=== PATIENT | male | born 1935 | race Caucasian/White ===

== ENCOUNTER → 2017-02-15 | Outpatient (CLI) | payer OTHER ==
[~2017-02-15] MED LIST: Carafate1 GM/10 ML PO; MIDODRINE HCL5 M1 PO; NKHM; PRILOSEC20 MG PO; VITAMIN D50000 I3 PO
== END | disposition home or self-care (01) ==
LOC: RAD 10:43
DX: M81.0 Age-related osteoporosis without current pathological fracture (principal); E83.51 Hypocalcemia

== ENCOUNTER → 2018-12-11 | Outpatient (CLI) | payer OTHER | END | disposition home or self-care (01) | LOC: RAD 10:25 | DX: M81.0 Age-related osteoporosis without current pathological fracture (principal); E03.9 Hypothyroidism, unspecified; Z87.891 Personal history of nicotine dependence ==

== ENCOUNTER 2020-08-20 10:41 | Inpatient (IN) | payer OTHER ==
[~2020-08-20] VITALS: Ht 182.9 cm; Wt 90.3 kg
[2020-08-20 11:25] LABS: BASO % 0.3 % (0.0-1.0); EOS % 0.4 % (1.0-4.0); HEMATOCRIT 38.5 % (42.0-52.0); LYMPH # 0.9 10*3/uL (1.3-4.4); LYMPH % 11.3 % (27.0-41.0); MEAN CELL VOLUME 91.2 fl (80.0-94.0); MEAN CORPUSCULAR HGB 31.5 pg (27.0-31.0); MEAN CORPUSCULAR HGB CONC 34.5 g/dl (33.0-37.0); MEAN PLATELET VOLUME 8.6 fl (9.6-12.3); MONO # 0.7 10*3/uL (0.1-1.0); MONO % 9.1 % (3.0-9.0); NEUT % 78.5 % (47.0-73.0); PLATELET COUNT AUTOMATED 163 10*3/uL (130-400); RED BLOOD COUNT 4.22 10*6/uL (4.50-5.90); RED CELL DISTRI WIDTH 13.1 % (0-14.5); WHITE BLOOD COUNT 7.6 10*3/uL (4.8-10.8)
[2020-08-20 11:27] VITALS: BP 100/66
[2020-08-20 11:42] LABS: ALBUMIN 3.2 gm/dl (3.1-4.5); ALKALINE PHOSPHATASE 68 U/L (45-117); BUN 11 mg/dl (7-24); CHLORIDE 88 mmol/L (98-107); CREATININE 0.97 mg/dL (0.70-1.30); POTASSIUM 2.9 mmol/L (3.5-5.1); SGOT/AST 16 IU/L (3-35); SGPT/ALT 22 U/L (12-78); SODIUM 122 mmol/L (136-145); TOTAL PROTEIN 5.9 gm/dL (6.4-8.2)
[2020-08-20 11:44] LABS: TROPONIN I < 0.015 ng/ml (<0.045)
[2020-08-20 13:27] VITALS: BP 148/81
[2020-08-20 13:30] LABS: BILIRUBIN Negative (Negative); BLOOD Negative (Negative); CLARITY Clear (Clear); COLOR Yellow (Yellow); GLUCOSE Negative (Negative); KETONE Negative (Negative); LEUKO ESTERASE 3+ (Negative); NITRITE Positive (Negative)
[2020-08-20 13:38] LABS: BACTERIA 3+; EPITHELIAL CELLS 0-2; WBC 41-50 wbc/hpf (0-5)
[2020-08-20 16:00] VITALS: BP 148/81
[2020-08-20] MEDS ORDERED: SYNTHROID,LEVO75 MCG PO (16:24)
[2020-08-20] MEDS ORDERED: BETHANECHOL CHL25 MG PO (16:25)
[2020-08-20] MEDS ORDERED: GOOD NEIGHBOR M25 M1 PO (16:25)
[2020-08-20] MEDS ORDERED: FLUDROCORTISON0.1 MG PO (16:26)
[2020-08-20] MEDS ORDERED: SILODOSIN8 MG PO (16:26)
[2020-08-20] MEDS ORDERED: TRAZODONE50 MG PO (16:27)
[2020-08-20] MEDS ORDERED: MEDROL DOSEPAK4 MG PO (16:27)
[2020-08-20] MEDS ORDERED: SINEMET 25-1001 EACH PO (16:27)
[2020-08-20] MEDS ORDERED: DROXIDOPA200 MG PO (16:28)
[2020-08-20 20:00] VITALS: BP 94/68
[2020-08-21] VITALS: BP 125/77
[2020-08-21 06:25] LABS: ACT PARTIAL THROMBO TIME 29.3 SECONDS (20.0-32.1)
[2020-08-21 06:27] LABS: BASO % 0.4 % (0.0-1.0); EOS % 0.6 % (1.0-4.0); HEMATOCRIT 42.6 % (42.0-52.0); LYMPH # 1.7 10*3/uL (1.3-4.4); LYMPH % 24.3 % (27.0-41.0); MEAN CELL VOLUME 91.4 fl (80.0-94.0); MEAN CORPUSCULAR HGB 31.3 pg (27.0-31.0); MEAN CORPUSCULAR HGB CONC 34.3 g/dl (33.0-37.0); MEAN PLATELET VOLUME 8.9 fl (9.6-12.3); MONO # 0.6 10*3/uL (0.1-1.0); MONO % 8.5 % (3.0-9.0); NEUT # 4.5 10*3/uL (2.3-7.9); NEUT % 65.8 % (47.0-73.0); RED BLOOD COUNT 4.66 10*6/uL (4.50-5.90); RED CELL DISTRI WIDTH 12.9 % (0-14.5); WHITE BLOOD COUNT 6.8 10*3/uL (4.8-10.8)
[2020-08-21 06:47] LABS: PLATELET COUNT AUTOMATED 214 10*3/uL (130-400)
[2020-08-21 06:55] LABS: CHLORIDE 93 mmol/L (98-107); POTASSIUM 3.3 mmol/L (3.5-5.1); SODIUM 126 mmol/L (136-145)
[2020-08-21 07:16] LABS: ALBUMIN 3.3 gm/dl (3.1-4.5); ALKALINE PHOSPHATASE 72 U/L (45-117); BUN 9 mg/dl (7-24); CHOLESTEROL 170 mg/dL (<200); FREE T4 0.98 ng/dl (0.76-1.46); LDL CHOLESTEROL 83 mg/dL (9-159); SGOT/AST 20 IU/L (3-35); SGPT/ALT 17 U/L (12-78); THYROID STIM HORMONE (HS) 0.676 uIU/ml (0.358-4.75); TOTAL PROTEIN 6.4 gm/dL (6.4-8.2); TRIGLYCERIDES 81 mg/dl (<150)
[2020-08-21 08:00] VITALS: BP 110/72
[2020-08-21 12:00] VITALS: BP 112/70
[2020-08-21 16:00] VITALS: BP 120/67
[2020-08-21 20:00] VITALS: BP 92/56
[2020-08-22] VITALS: BP 81/55; BP 90/50
[2020-08-22 06:10] LABS: BASO % 0.6 % (0.0-1.0); EOS # 0.1 10*3/uL (0.0-0.4); HEMATOCRIT 38.2 % (42.0-52.0); LYMPH # 1.2 10*3/uL (1.3-4.4); LYMPH % 23.5 % (27.0-41.0); MEAN CELL VOLUME 93.4 fl (80.0-94.0); MEAN CORPUSCULAR HGB 31.8 pg (27.0-31.0); MEAN PLATELET VOLUME 8.7 fl (9.6-12.3); MONO # 0.5 10*3/uL (0.1-1.0); MONO % 9.6 % (3.0-9.0); NEUT # 3.1 10*3/uL (2.3-7.9); NEUT % 63.7 % (47.0-73.0); PLATELET COUNT AUTOMATED 174 10*3/uL (130-400); RED BLOOD COUNT 4.09 10*6/uL (4.50-5.90); RED CELL DISTRI WIDTH 13.1 % (0-14.5); WHITE BLOOD COUNT 4.9 10*3/uL (4.8-10.8)
[2020-08-22 06:42] LABS: ALBUMIN 2.9 gm/dl (3.1-4.5); ALKALINE PHOSPHATASE 67 U/L (45-117); BUN 12 mg/dl (7-24); CHLORIDE 98 mmol/L (98-107); CREATININE 0.93 mg/dL (0.70-1.30); POTASSIUM 3.7 mmol/L (3.5-5.1); SGOT/AST 16 IU/L (3-35); SGPT/ALT 16 U/L (12-78); SODIUM 128 mmol/L (136-145); TOTAL PROTEIN 5.6 gm/dL (6.4-8.2)
[2020-08-22 08:00] VITALS: BP 135/71
[2020-08-22 12:00] VITALS: BP 116/73
[2020-08-22 16:00] VITALS: BP 137/77
[2020-08-22 20:00] VITALS: BP 107/62
[2020-08-23] VITALS: BP 111/69
[2020-08-23 06:17] LABS: BASO % 0.6 % (0.0-1.0); EOS # 0.2 10*3/uL (0.0-0.4); EOS % 3.1 % (1.0-4.0); HEMATOCRIT 37.5 % (42.0-52.0); LYMPH # 1.4 10*3/uL (1.3-4.4); LYMPH % 29.7 % (27.0-41.0); MEAN CELL VOLUME 93.3 fl (80.0-94.0); MEAN CORPUSCULAR HGB 31.3 pg (27.0-31.0); MEAN CORPUSCULAR HGB CONC 33.6 g/dl (33.0-37.0); MEAN PLATELET VOLUME 8.9 fl (9.6-12.3); MONO # 0.4 10*3/uL (0.1-1.0); MONO % 8.9 % (3.0-9.0); NEUT # 2.8 10*3/uL (2.3-7.9); NEUT % 57.3 % (47.0-73.0); PLATELET COUNT AUTOMATED 175 10*3/uL (130-400); RED BLOOD COUNT 4.02 10*6/uL (4.50-5.90); RED CELL DISTRI WIDTH 13.2 % (0-14.5); WHITE BLOOD COUNT 4.8 10*3/uL (4.8-10.8)
[2020-08-23 06:21] LABS: BUN 10 mg/dl (7-24); CHLORIDE 97 mmol/L (98-107); CREATININE 0.78 mg/dL (0.70-1.30); POTASSIUM 3.8 mmol/L (3.5-5.1); SODIUM 127 mmol/L (136-145)
[2020-08-23 08:00] VITALS: BP 150/84
[2020-08-23 12:00] VITALS: BP 126/77
[2020-08-23 16:00] VITALS: BP 150/90
[2020-08-23 17:04] LABS: BILIRUBIN Negative (Negative); BLOOD Negative (Negative); CLARITY Cloudy (Clear); COLOR Yellow (Yellow); GLUCOSE Negative (Negative); KETONE Negative (Negative); LEUKO ESTERASE 2+ (Negative); NITRITE Negative (Negative); UROBILINOGEN 0.2 E.U./dl (0.0-1.0)
[2020-08-23 17:48] LABS: WBC TNTC wbc/hpf (0-5)
[2020-08-23 17:49] LABS: BACTERIA 1+
[2020-08-23 20:00] VITALS: BP 113/76
[2020-08-24] VITALS: BP 135/77
[2020-08-24 07:02] LABS: CHLORIDE 100 mmol/L (98-107); POTASSIUM 3.7 mmol/L (3.5-5.1); SODIUM 127 mmol/L (136-145)
[2020-08-24 07:06] LABS: BUN 7 mg/dl (7-24); CREATININE 0.71 mg/dL (0.70-1.30)
[2020-08-24 08:00] VITALS: BP 134/72
[2020-08-24 12:00] VITALS: BP 100/54
[2020-08-24 16:00] VITALS: BP 106/66
[2020-08-24 20:00] VITALS: BP 107/67
[2020-08-25 00:09] VITALS: BP 110/63
[2020-08-25 06:23] LABS: BUN 8 mg/dl (7-24); CHLORIDE 101 mmol/L (98-107); CREATININE 0.67 mg/dL (0.70-1.30); POTASSIUM 3.4 mmol/L (3.5-5.1); SODIUM 128 mmol/L (136-145)
[2020-08-25 08:00] VITALS: BP 102/64
[2020-08-25 12:00] VITALS: BP 112/64
[2020-08-25] MEDS ORDERED: SODIUM CHLORIDE1 GM PO (13:05)
== END 2020-08-25 17:23 | disposition home health service (06) | DRG 641 ==
LOC: ED 10:41 → EDHOLD 12:46 → 4E 12:46 → EDHOLD 14:06 → 4E 15:02
PROVIDERS: Emergency Medicine; Internal Medicine; Internal Medicine Nephrology; Registered Nurse; ADMIT Family Medicine; ATTEND Family Medicine
DX: E87.1 Hypo-osmolality and hyponatremia (principal); G20 Parkinson's disease; C61 Malignant neoplasm of prostate; E23.6 Other disorders of pituitary gland; E87.6 Hypokalemia; R31.9 Hematuria, unspecified; D64.9 Anemia, unspecified; E87.8 Other disorders of electrolyte and fluid balance, not elsewhere classified; R73.9 Hyperglycemia, unspecified; E06.3 Autoimmune thyroiditis; I95.0 Idiopathic hypotension; S51.811A Laceration without foreign body of right forearm, initial encounter; X58.XXXA Exposure to other specified factors, initial encounter; Z86.711 Personal history of pulmonary embolism; Z85.46 Personal history of malignant neoplasm of prostate; Y93.89 Activity, other specified; Y92.89 Other specified places as the place of occurrence of the external cause; Y99.8 Other external cause status